=== PATIENT | male | born 1950 | race Caucasian/White ===

== ENCOUNTER 2020-06-15 08:05 | Outpatient (RCR) | payer MEDICARE, SELFPAY | END 2020-08-03 11:24 | disposition home or self-care (01) | LOC: HO.WCC 08:05 | PROVIDERS: PCP Internal Medicine; Visit Provider Physician Assistant | DX: Z09 Encounter for follow-up examination after completed treatment for conditions other than malignant neoplasm (principal); E11.51 Type 2 diabetes mellitus with diabetic peripheral angiopathy without gangrene; I87.302 Chronic venous hypertension (idiopathic) without complications of left lower extremity; E11.22 Type 2 diabetes mellitus with diabetic chronic kidney disease; I50.9 Heart failure, unspecified; N18.6 End stage renal disease | CPT/HCPCS: 11042; 97597; 99202; 99212; 99215 ==

== ENCOUNTER 2020-06-24 08:20 | Outpatient (REF) | payer MEDICARE, SELFPAY ==
--- NOTE | ~2020-06-24 | US_ITS ---
EXAMINATION: COLOR-FLOW DUPLEX IMAGING OF THE BILATERAL LOWER EXTREMITY ARTERIAL SYSTEM. VELOCITY MEASUREMENTS THROUGHOUT THE FEMORAL ARTERIES CLINICAL INFORMATION: This is a 70-year-old male with peripheral vascular disease. Diabetes. Interventional Radiologist: Sherman Luo M.D., F.S.I.R., F.A.C.R. RIGHT FEMORAL RUNOFF VELOCITIES: The right common femoral artery measures 78 cm/s and triphasic. The right profunda femoral artery is 37 cm/s and is triphasic. Right proximal superficial femoral artery measures 82 cm/s and triphasic. Mid superficial femoral artery is 53 cm/s and triphasic. Distal right superficial femoral artery measures 43 cm/s and is triphasic. Right popliteal velocity measures 51 cm/s and is triphasic. The posterior tibial artery velocity measures 70 cm/s and was triphasic. LEFT FEMORAL RUNOFF VELOCITIES: The left common femoral artery measures 69 cm/s and triphasic. The left profunda femoral artery is 50 to cm/s and is biphasic. Left proximal superficial femoral artery measures 79 cm/s and triphasic. Mid superficial femoral artery is 56 cm/s and triphasic. Distal left superficial femoral artery measures 48 cm/s and is triphasic. Left popliteal velocity measures 55 cm/s and is triphasic. The posterior tibial artery velocity measures 51 cm/s and was biphasic. US/US arterial duplex LE BI IMPRESSION: 1. Normal bilateral resting peripheral arterial testing without evidence of hemodynamically significant stenosis.
== END 2020-06-24 08:21 | disposition home or self-care (01) ==
LOC: HO.US 08:20
PROVIDERS: Visit Provider Physician Assistant
DX: I87.2 Venous insufficiency (chronic) (peripheral) (principal); I73.9 Peripheral vascular disease, unspecified
CPT/HCPCS: 93925

== ENCOUNTER 2020-12-06 00:44 | Outpatient (REF) | payer SELFPAY | END 2020-12-06 00:45 | disposition home or self-care (01) | LOC: HO.MMNH2L 00:44 | PROVIDERS: Visit Provider Family Medicine | DX: Z13.89 Encounter for screening for other disorder (principal) ==

== ENCOUNTER 2020-12-21 07:06 | Outpatient (REF) | payer MEDICARE, SELFPAY ==
[2020-12-21 07:33] LABS: INTERNATIONAL NORM RATIO 3.7 (0.9-1.1); Prothrombin Time 43.1 SEC (9.9-13.0)
== END 2020-12-21 07:07 | disposition home or self-care (01) ==
LOC: HO.MMNH2L 07:06
PROVIDERS: Visit Provider Family Medicine
DX: N18.6 End stage renal disease (principal); E11.9 Type 2 diabetes mellitus without complications
CPT/HCPCS: 36415; 85610

== ENCOUNTER 2020-12-22 07:04 | Outpatient (REF) | payer MEDICARE, SELFPAY | END 2020-12-22 07:05 | disposition home or self-care (01) | LOC: HO.MMNH2L 07:04 | PROVIDERS: Visit Provider Family Medicine | DX: Z13.89 Encounter for screening for other disorder (principal) ==

== ENCOUNTER 2020-12-25 06:42 | Outpatient (REF) | payer MEDICARE, SELFPAY ==
[2020-12-25 07:00] LABS: INTERNATIONAL NORM RATIO 3.8 (0.9-1.1); Prothrombin Time 44.6 SEC (9.9-13.0)
== END 2020-12-25 06:43 | disposition home or self-care (01) ==
LOC: HO.MMNH2L 06:42
PROVIDERS: Visit Provider Family Medicine
DX: I48.91 Unspecified atrial fibrillation (principal)
CPT/HCPCS: 36415; 85610

== ENCOUNTER 2020-12-26 06:34 | Outpatient (REF) | payer MEDICARE, SELFPAY ==
[2020-12-26 06:58] LABS: Prothrombin Time 46.3 SEC (9.9-13.0)
== END 2020-12-26 06:35 | disposition home or self-care (01) ==
LOC: HO.MMNH2L 06:34
PROVIDERS: Visit Provider Family Medicine
DX: I48.91 Unspecified atrial fibrillation (principal)
CPT/HCPCS: 36415; 85610

== ENCOUNTER 2020-12-27 00:11 | Outpatient (REF) | payer MEDICARE, SELFPAY | END 2020-12-27 00:12 | disposition home or self-care (01) | LOC: HO.MMNH2L 00:11 | PROVIDERS: Visit Provider Family Medicine | DX: Z13.89 Encounter for screening for other disorder (principal) ==